=== PATIENT | male | born 1965 | race Caucasian/White ===

== ENCOUNTER → 2016-12-10 | Outpatient (CLI) | payer BC, OTHER ==
--- NOTE | 2016-12-10 08:37 | DI ---
GALLBLADDER AND LIVER ULTRASOUND, 12/10/2016 7:20 AM: Clinical History: Elevated liver function test. Previous Exam: None at this facility. Technique: Scans are performed through the right upper quadrant in multiple projections. The patient was rolled from side to side and the gallbladder was balloted with the probe to facilitate visualizat ion of small gallstones. The gallbladder is well distended and has a normal wall thickness. There are no gallstones. The commo n bile duct measures 5 mm. The pancreas is visualized from the head to the body and is normal. The ri ght lobe of the liver is well-visualized and is normal. The left lobe was difficult to visualize liban use of bowel gas. The right kidney, IVC, and aorta are normal. Readin. Right lobe of the liver and the limited views of the left lobe are normal. The left lobe is not i deally visualized secondary to bowel gas. 2. The gallbladder, right kidney, pancreas, IVC, and aorta are normal.
== END ==
LOC: US 07:05
PROVIDERS: ATTEND Internal Medicine
DX: R94.5 Abnormal results of liver function studies (principal)
CPT/HCPCS: 76705